=== PATIENT | male | born 1925 ===

== ENCOUNTER → 2016-06-06 | Outpatient (CLI) | payer MEDICARE, OTHER ==
[~2016-06-06] VITALS: Ht 154.9 cm; Wt 51.0 kg
[~2016-06-06] MED LIST: BICA50TA3 PO; BIMA12.5OS; BIMA12.5OS OS; CEPH250 PO; COMB5OS OS; COMB5OS OU; ESOM40CA PO; HYDR-4106 PO; LUPR22.5 IM; NALO25TA PO; OXYC15TA2 PO; TERI2.4P SQ
[2016-06-06 10:38] VITALS: BP 109/65
== END | disposition home or self-care (01) ==
LOC: SRCNTR 10:36
PROVIDERS: ATTEND Hospitalist
DX: H26.9 Unspecified cataract (principal); H40.9 Unspecified glaucoma; C61 Malignant neoplasm of prostate; R63.4 Abnormal weight loss; K21.9 Gastro-esophageal reflux disease without esophagitis; S32.009A Unspecified fracture of unspecified lumbar vertebra, initial encounter for closed fracture; M89.9 Disorder of bone, unspecified
CPT/HCPCS: G0463

== ENCOUNTER 2016-06-26 05:30 | Day surgery (SDC) | payer MEDICARE, OTHER ==
[~2016-06-26] VITALS: Ht 154.9 cm; Wt 50.5 kg
[~2016-06-26 05:30] MED LIST changes: -BICA50TA3 PO; -BIMA12.5OS; -BIMA12.5OS OS; -CEPH250 PO; -COMB5OS OU
[2016-06-26] MEDS ORDERED: BESIFLOXACIN HCL 0.6% 5 ML OPHTHALMIC SUSPENSION OS ONE (06:00)
[2016-06-26] MEDS ORDERED: RINGERS SOLUTION,LACTATED 500 ML IV ONE ×2 (06:00→14:20)
[2016-06-26] MEDS ORDERED: DICLOFENAC SODIUM 0.1% 2.5 ML OPHTHALMIC SOLUTION OS ONE (06:00)
[2016-06-26] MEDS: PHENYLEPHRINE HCL 2.5% 2 ML OPHTHALMIC SOLUTION OS SCH ×2 (06:29→06:35)
[2016-06-26] MEDS: TROPICAMIDE 1% 2 ML OPHTHALMIC SOLUTION OS SCH ×2 (06:29→06:35)
[2016-06-26] MEDS ORDERED: FentaNYL CITRATE-PF 100 MCG/2 ML VIAL IVP ONE (12:00)
[2016-06-26] MEDS ORDERED: MIDAZOLAM HCL 2 MG/2 ML VIAL IVP ONE (12:00)
[2016-06-26] MEDS ORDERED: BESIFLOXACIN HCL 0.6% 5 ML OPHTHALMIC SUSPENSION ONE (14:20)
[2016-06-26] MEDS ORDERED: PHENYLEPHRINE HCL 2.5% 2 ML OPHTHALMIC SOLUTION ONE (14:20)
[2016-06-26] MEDS ORDERED: DICLOFENAC SODIUM 0.1% 2.5 ML OPHTHALMIC SOLUTION ONE (14:20)
[2016-06-26] MEDS ORDERED: TROPICAMIDE 1% 2 ML OPHTHALMIC SOLUTION ONE (14:20)
[2016-06-26] MEDS ORDERED: TETRACAINE HCL VISCOUS 0.5% 0.6 ML OPHTHALMIC SOLUTION OS ONE (16:54)
[2016-06-26] MEDS ORDERED: LIDOCAINE HCL/PF 1% 2 ML VIAL IM ONE (16:54)
[2016-06-26] MEDS ORDERED: DEXAMETHASONE SOD PHOS 4 MG/ML VIAL IVP ONE (16:54)
[2016-06-26] MEDS ORDERED: POVIDONE-IODINE 10% 15 ML SOLUTION UD TP ONE (16:54)
[2016-06-26] MEDS ORDERED: HYALURONATE SODIUM 12 MG/ML 0.8 ML SYRINGE IO ONE (16:54)
[2016-06-26] MEDS ORDERED: HYALURONATE SOD/CHONDROITIN SOD 0.5 ML VIAL IO ONE (16:54)
[2016-09-02] MEDS ORDERED: BIMA12.5OS (11:00)
[2016-09-02] MEDS ORDERED: BICA50TA3 PO (11:00)
== END 2016-06-26 09:35 | disposition home or self-care (01) ==
LOC: SURGERY 05:30
PROVIDERS: ATTEND Specialist
DX: E11.36 Type 2 diabetes mellitus with diabetic cataract (principal); H25.012 Cortical age-related cataract, left eye; E11.39 Type 2 diabetes mellitus with other diabetic ophthalmic complication; H40.9 Unspecified glaucoma; G35 Multiple sclerosis; M54.9 Dorsalgia, unspecified; K21.9 Gastro-esophageal reflux disease without esophagitis; C61 Malignant neoplasm of prostate
CPT/HCPCS: 66984; 93005; C1780; J1100; J2250; J3010; J3490 ×2; J7120

== ENCOUNTER → 2016-08-20 | Outpatient (CLI) | payer MEDICARE, OTHER ==
[~2016-08-20] MED LIST changes: +BICA50TA3 PO; +BIMA12.5OS
[2016-08-20 12:22] LABS: BASOPHILS % (AUTO) 0.4 % (0.0-2.0); EOSINOPHILS % (AUTO) 1.5 % (1.0-6.0); HEMATOCRIT 40.1 % (41-53); HEMOGLOBIN 13.1 g/dL (13.5-17.5); LYMPHOCYTES # (AUTO) 1.9 K/uL (1.0-4.8); LYMPHOCYTES % (AUTO) 26.8 % (22.0-44.0); MEAN CORPUSCULAR HEMOGLOBIN 35.8 pg (26.0-34.0); MEAN CORPUSCULAR HGB CONC 32.6 G/dL (31.0-37.0); MEAN CORPUSCULAR VOLUME 110 fL (80-100); MONOCYTES # (AUTO) 0.7 K/uL (0.1-1.0); MONOCYTES % (AUTO) 9.4 % (2.0-9.0); NEUTROPHILS # (AUTO) 4.3 K/uL (1.8-7.7); NEUTROPHILS % (AUTO) 61.9 % (40.0-70.0); PLATELET COUNT (AUTO) 200 K/uL (150-450); RED BLOOD CELL COUNT(AUTO) 3.65 MIL/uL (4.50-5.90); RED CELL DISTRIBUTION WIDTH 15.9 % (11.5-14.5)
[2016-08-20 12:40] LABS: ALANINE AMINOTRANSFERASE 20 U/L (12-78); ALBUMIN 3.6 g/dL (3.4-5.0); ANION GAP 5 mmol/L (8-16); ASPARTATE AMINOTRANSFERASE 20 U/L (15-37); BILIRUBIN,TOTAL 0.5 mg/dL (0.1-1.0); CARBON DIOXIDE 32 mmol/L (22-29); CHLORIDE 101 mmol/L (98-107); CHOL/HDL RATIO 2.9 (4.2-7.3); CREATININE 0.74 mg/dL (0.60-1.30); GLOMERULAR FILTR. RATE CALC > 60 mL/min (>60); POTASSIUM 4.3 mmol/L (3.5-5.1); PROSTATE SPECIFIC ANTIGEN 2.76 ng/mL (0.00-4.00); SODIUM SERUM 138 mmol/L (136-145); THYROID STIMULATING HORMONE 3.71 uIU/mL (0.36-3.74); TOTAL PROTEIN, SERUM 7.7 g/dL (6.4-8.2); UREA NITROGEN, BLOOD 18 mg/dL (7-18)
[2016-08-20 12:44] LABS: RBC MORPHOLOGY COMMENT ABNORMAL RBC MORPH
== END | disposition home or self-care (01) ==
LOC: LABPV 10:15
PROVIDERS: ATTEND Hospitalist
DX: E46 Unspecified protein-calorie malnutrition (principal); M81.0 Age-related osteoporosis without current pathological fracture; R63.4 Abnormal weight loss; C61 Malignant neoplasm of prostate
CPT/HCPCS: 84153; 84439; 84443

== ENCOUNTER → 2016-09-02 | Outpatient (CLI) | payer MEDICARE, OTHER ==
[~2016-09-02] VITALS: Ht 154.9 cm; Wt 53.0 kg
[2016-09-02 10:52] VITALS: BP 94/62
== END | disposition home or self-care (01) ==
LOC: SRCNTR 10:46
PROVIDERS: ATTEND Hospitalist
DX: K21.9 Gastro-esophageal reflux disease without esophagitis (principal); H26.9 Unspecified cataract; M54.9 Dorsalgia, unspecified; R63.4 Abnormal weight loss; M81.0 Age-related osteoporosis without current pathological fracture; T14.8 Other injury of unspecified body region; H54.41 Blindness, right eye, normal vision left eye; H40.9 Unspecified glaucoma; G95.89 Other specified diseases of spinal cord
CPT/HCPCS: G0463

== ENCOUNTER → 2016-11-25 | Outpatient (CLI) | payer MEDICARE, OTHER ==
[~2016-11-25] VITALS: Ht 154.9 cm; Wt 53.7 kg
[~2016-11-25] MED LIST changes: -HYDR-4106 PO
[2016-11-25 12:19] VITALS: BP 94/51
== END | disposition home or self-care (01) ==
LOC: SRCNTR 11:18
PROVIDERS: ATTEND Hospitalist
DX: K21.9 Gastro-esophageal reflux disease without esophagitis (principal); M81.0 Age-related osteoporosis without current pathological fracture; C61 Malignant neoplasm of prostate; R22.9 Localized swelling, mass and lump, unspecified
CPT/HCPCS: G0463

== ENCOUNTER → 2017-01-20 | Outpatient (CLI) | payer MEDICARE, OTHER ==
[~2017-01-20] VITALS: Ht 154.9 cm; Wt 54.2 kg
[~2017-01-20] MED LIST changes: +INFLUENZA VIRUS VACCINE QVS 2017-18 (3YR+)/PF 60 MCG/0.5 ML SYRINGE IM ONE
[2017-01-20 11:28] VITALS: BP 114/70
== END | disposition home or self-care (01) ==
LOC: SRCNTR 11:05
PROVIDERS: ATTEND Hospitalist
DX: K21.9 Gastro-esophageal reflux disease without esophagitis (principal); G89.4 Chronic pain syndrome; M16.11 Unilateral primary osteoarthritis, right hip; M54.5 Low back pain; H26.9 Unspecified cataract; R63.4 Abnormal weight loss; H40.9 Unspecified glaucoma; M48.50XD Collapsed vertebra, not elsewhere classified, site unspecified, subsequent encounter for fracture with routine healing; Z85.46 Personal history of malignant neoplasm of prostate
CPT/HCPCS: 90471 ×2; 96372; G0463